=== PATIENT | male | born 1980 | race American Indian/Alaskan Native ===

== ENCOUNTER 2019-07-17 15:45 | Emergency (ER) | payer SELFPAY ==
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
--- NOTE | 2019-07-17 18:36 | XRay Report ---
LUMBOSACRAL SPINE 3 VIEWS INDICATION / CLINICAL INFORMATION: Low back pain. COMPARISON: None available. FINDINGS: BONES / JOINT(S): There is a transitional lumbosacral segment. There is minimal degenerative disc dis ease at the last normal disc space (L4-5). The pedicles are intact and the SI joints are normal. Ther e is no evidence of fracture, subluxation or destructive lesion. SOFT TISSUES: No significant abnormality. ADDITIONAL FINDINGS: None. IMPRESSION: Transitional lumbosacral segment with minimal lower lumbar spondylosis. No acute abnormal ity. Signer Name: Jose M Ho MD Signed: 07/17/2019 6:31 PM Workstation Name: [id number]
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
[2019-07-17 22:23] VITALS: BP 147/72
== END 2019-07-17 22:23 | disposition home or self-care (01) ==
LOC: ED 15:45
DX: S39.012A Strain of muscle, fascia and tendon of lower back, initial encounter (principal); Z79.899 Other long term (current) drug therapy; V49.49XA Driver injured in collision with other motor vehicles in traffic accident, initial encounter; Y93.89 Activity, other specified; Y92.410 Unspecified street and highway as the place of occurrence of the external cause; Y99.8 Other external cause status
CPT/HCPCS: 72100